=== PATIENT | female | born 1965 | race Caucasian/White ===

== ENCOUNTER 2017-05-03 17:26 | Emergency (ER) | payer OTHER ==
[2017-05-03] MEDS ORDERED: ONDANSETRON 4 MG ODT TABLET SL ONE (17:41)
--- NOTE | 2017-05-03 17:42 | Emergency Department Record ---
History of Present Illness - General Chief complaint: Flu Like Symptoms Stated complaint: THINK I HAVE THE FLU Time Seen by Provider: 05/03/17 17:35 Source: Patient Mode of Arrival: Ambulatory Limitations: No limitations - History of Present Illness Initial comments: 52 yo female presents with congestion, drainage, irritated throat since Friday. She has since then developed cough, some nausea and diarrhea. She denies and fevers. No rash. No abdominal pain. No blood in the vomit or diarrhea. Co-workers have had very similar symptoms this past week. Onset/Timin -: Days(s) Severity: Mild Severity scale (1-10): 3 Quality: Aching Consistency: Constant Improves with: None Worsens with: None Context: Other (Sick contacts at work) Associated Symptoms: Headaches, Nausea/vomiting - Jed Coma Scale Eye Response: (4) Open spontaneously Motor Response: (6) Obeys commands Verbal Response: (5) Oriented Jed Total: 15 - Related Data Previous Rx's Medication Instructions Recorded Budesonide [Rhinocort Allergy] 5 ml NS BID #1 spray.pump 05/03/17 Ondansetron [Zofran Odt] 4 mg PO Q8H #15 tab.rapdis 05/03/17 Allergies Allergy/AdvReac Type Severity Reaction Status Date / Time No Known Drug Allergies Allergy Verified 05/03/17 17:36 Travel Screening - Travel/Exposure Within Last 30 Days Have you traveled within the last 30 days?: No Review of Systems Constitutional: Reports: Chills. Denies: Fever Eyes: Denies: Eye discharge, Eye pain, Photophobia, Vision change ENT: Reports: Congestion, Throat pain Respiratory: Reports: Cough. Denies: Dyspnea, Hemoptysis, Stridor, Wheezes Cardiovascular: Denies: Chest pain, Palpitations, Syncope Endocrine: Reports: Fatigue Gastrointestinal: Reports: As per HPI, Diarrhea, Nausea, Vomiting. Denies: Abdominal pain Genitourinary: Denies: Dysuria, Urgency Musculoskeletal: Denies: Arthralgia, Back pain, Joint swelling, Myalgia, Neck pain Skin: Denies: Bruising, Change in color, Rash Neurological: Reports: Headache (right forehead). Denies: Numbness, Weakness Psychiatric: Denies: Anxiety Hematological/Lymphatic: Denies: Blood Clots, Easy bleeding, Easy bruising, Swollen glands Physical Exam - General General Appearance: Alert, Oriented x3, Cooperative, No acute distress Limitations: No limitations - Head Head exam: Atraumatic, Normal inspection - Eye Eye exam: Normal appearance. negative: Conjunctival injection, Scleral icterus - ENT ENT exam: Normal exam, Mucous membranes moist, Normal orophraynx, TM's normal bilaterally Ear exam: Normal external inspection Nasal Exam: Discharge (clear) Mouth exam: Normal external inspection, Tongue normal. negative: Muffled voice , Tongue elevation Teeth exam: Normal inspection Throat exam: Normal inspection. negative: Tonsillar erythema, Tonsillomegaly, Tonsillar exudate, R peritonsillar mass, L peritonsillar mass - Neck Neck exam: Normal inspection. negative: Lymphadenopathy, Tenderness - Respiratory Respiratory exam: Normal lung sounds bilaterally. negative: Respiratory distress - Cardiovascular Cardiovascular Exam: Regular rate, Normal rhythm, Normal heart sounds - GI/Abdominal GI/Abdominal exam: Soft, Normal bowel sounds. negative: Distended, Guarding, Hypoactive bowel sounds, Rebound, Tenderness - Rectal Rectal exam: Deferred - exam: Deferred - Extremities Extremities exam: Normal inspection, Full ROM, Normal capillary refill. negative: Pedal edema, Tenderness - Back Back exam: Reports: Normal inspection, Full ROM. Denies: CVA tenderness (R), CVA tenderness (L), Muscle spasm, Rash noted, Tenderness - Neurological Neurological exam: Alert, Normal gait, Oriented X3 - Psychiatric Psychiatric exam: Normal affect, Normal mood - Skin Skin exam: Dry, Intact, Normal color, Warm Course Vital Signs 05/03/17 17:37 Temperature 97.7 F Pulse Rate [ 77 Pulse Ox Probe] Respiratory 16 Rate Blood Pressure 165/99 [Left Arm] Pulse Ox 97 - Reevaluation(s) Reevaluation #1: 05/03/17 18:07 The strep and influenza are negative 05/03/17 18:15 The symptoms are likely viral in nature DC with supportive care Disposition Disposition: Discharge Disposition: Home, Self-Care Condition: (1) Good Instructions: Cold Symptoms (ED) Additional Instructions: Rest and stay well hydrated Return in 2-3 day if not feeling improved Take the Zofran as directed for nausea. Prescriptions: Budesonide [Rhinocort Allergy] 5 ml NS BID #1 spray.pump Ondansetron [Zofran Odt] 4 mg PO Q8H #15 tab.rapdis Forms: Patient Portal Access Time of Disposition: 18:14 Quality - Quality Measures Quality Measures: N/A - Blood Pressure Screening Does Patient Have Any of the Following: No Blood Pressure Classification: Hypertensive Reading Systolic Measurement: 165 Diastolic Measurement: 99 Screening for High Blood Pressure: < Pre-Hypertensive BP, F/U Documented > [ [id number]] Pre-Hypertensive Follow-up Interventions: Referral to alternative/primary care provider.
[2017-05-03 18:03] LABS: INFLUENZA A NEGATIVE (NEGATIVE); INFLUENZA B NEGATIVE (NEGATIVE)
== END 2017-05-03 18:25 | disposition home or self-care (01) ==
LOC: ER 17:26
DX: J02.9 Acute pharyngitis, unspecified (principal); R19.7 Diarrhea, unspecified; R11.0 Nausea; R51 Headache
CPT/HCPCS: 87400; 87880; 99282

== ENCOUNTER 2017-08-11 07:52 | Day surgery (SDC) | payer OTHER ==
[2017-08-11] MEDS ORDERED: MIDAZOLAM HCL 2MG/2ML VIAL IV ONE (07:53)
[2017-08-11] MEDS ORDERED: LIDOCAINE 2% MDV (20MG/ML) 20ML VIAL IV ONE (07:53)
[2017-08-11] MEDS ORDERED: PROPOFOL 10 MG/ML VIAL IV ONE (07:53)
--- NOTE | 2017-08-12 08:00 | Operative Note ---
DATE OF SURGERY: 08/11/2017 Surgeon: William Huffman DO Referring physician: Terrence Jones DO OPERATION: COLONOSCOPY TO THE CECUM WITH COLD SNARE POLYPECTOMY x1. INDICATION: Colorectal cancer screening. Intravenous sedation was administered by the Department of Anesthesiology and included Diprivan titrated to effect. PROCEDURE: Following informed consent from this alert individual, including a discussion of the risks and benefits of the procedure and opportunity for the patient to ask questions, the patient was in the left lateral decubitus position. Digital rectal examination was performed. No abnormalities were noted. Following this, the Olympus PCF 180 Video Colonoscope was inserted in the rectum without resistance. The rectal mucosa had a normal appearance with normal folds and distensibility. The colonoscope was advanced up through the colon to the level of the cecum without much difficulty. Throughout the bowel, the mucosa appeared normal, folds were normal. The bowel was filled with distensible. A few scattered diverticula were noted in the sigmoid colon. The cecum was well defined by noting the appendiceal orifice and the ileocecal valve. Retroflexion of the cecum was endoscopically unremarkable. The colon preparation was good. From the base of the cecum, the colonoscope was then slowly withdrawn. In the distal ascending colon, near the hepatic flexure, there was a sessile 5 mm polyp noted, which was removed with cold snare polypectomy and suctioned through the endoscope into a collection trap. No other changes were noted until the rectum was reached. Again, sigmoid diverticulosis was apparent. Retroflexion in the rectum revealed small internal hemorrhoids with hypertrophied papilla. The endoscope was straightened and removed. The patient tolerated the procedure well and was returned to the recovery area in stable condition. IMPRESSION: 1. A 5 mm distal ascending colon polyp removed with cold snare polypectomy. 2. Sigmoid diverticulosis. 3. Small internal hemorrhoids with hypertrophied papilla. RECOMMENDATIONS: The patient was advised that she should receive a copy of her pathology over the next 2 to 3 weeks, if not she was asked to call my office to review the results of testing today. Further recommendations forthcoming pending those results. Follow up will also be with Dr. Terrence Jones. As always, thank you for allowing me to participate in the care of your patient. CC: DO William Burciaga DO [facility]ERSamuel
== END 2017-08-11 09:41 | disposition home or self-care (01) ==
LOC: HOP 07:52
PROVIDERS: ATTEND Internal Medicine Gastroenterology
DX: Z12.11 Encounter for screening for malignant neoplasm of colon (principal); D12.2 Benign neoplasm of ascending colon; K57.30 Diverticulosis of large intestine without perforation or abscess without bleeding; K62.89 Other specified diseases of anus and rectum
CPT/HCPCS: 81025